=== PATIENT | female | born 1970 | race Caucasian/White ===

== ENCOUNTER 2018-10-05 06:01 | Day surgery (SDC) | payer OTHER ==
[~2018-10-05 06:01] MED LIST: CEFAZOLIN 1 GM/50 ML (PMX) 50 ML IVPB
[2018-10-05 06:48] LABS: ADD MAN DIFF? NO
[2018-10-05 06:56] LABS: BASOPHIL # 0.1 10^3/ul (0.0-0.1); BASOPHILS % 0.8 % (0.0-2.0); EOSINOPHILS # 0.1 10^3/ul (0.0-0.5); EOSINOPHILS % 1.5 % (0.0-7.0); HEMATOCRIT 37.9 % (37.0-47.0); HEMOGLOBIN 12.5 g/dl (12.0-16.0); LYMPHOCYTES # 2.2 10^3/ul (0.8-2.9); LYMPHOCYTES % 29.4 % (15.0-51.0); MEAN CORPUSCULAR HEMOGLOBIN 30.1 pg (29.0-33.0); MEAN CORPUSCULAR VOLUME 91.3 fl (82.0-101.0); MEAN PLATELET VOLUME 11.5 fl (7.4-10.4); MONOCYTE # 0.6 10^3/ul (0.3-0.9); MONOCYTES % 7.5 % (0.0-11.0); NEUTROPHIL # 4.6 10^3/ul (1.6-7.5); NEUTROPHILS % 60.7 % (39.0-77.0); PLATELET COUNT 214 10^3/UL (140-415); RED BLOOD COUNT 4.15 10^6/ul (4.20-5.40); RED CELL DISTRIBUTION WIDTH 12.8 % (11.5-14.5)
[2018-10-05 06:56] LABS: WHITE BLOOD COUNT 7.6 10^3/ul (4.8-10.8)
[2018-10-05 07:27] LABS: ALANINE AMINOTRANSFERASE 28 IU/L (13-69); ALBUMIN 3.8 g/dl (3.3-4.9); ALBUMIN/GLOBULIN RATIO 1.31; ALKALINE PHOSPHATASE 75 IU/L (42-121); ANION GAP 6 (5-13); ASPARTATE AMINO TRANSFERASE 25 IU/L (15-46); BILIRUBIN,INDIRECT 0.2 mg/dl (0-1.1); BILIRUBIN,TOTAL 0.2 mg/dl (0.2-1.3); BLOOD UREA NITROGEN 8 mg/dl (7-20); CALCIUM 8.5 mg/dl (8.4-10.2); CARBON DIOXIDE 26 mmol/L (21-31); CHLORIDE 104 mmol/L (97-110); CREATININE 0.65 mg/dl (0.44-1.00); Estimated GFR > 60 mL/min (>60); GLUCOSE 88 mg/dl (70-220); SODIUM 136 mmol/L (135-144); TOTAL PROTEIN 6.7 g/dl (6.1-8.1)
[2018-10-05 07:29] LABS: INR 0.91; PROTIME 12.4 Sec (11.9-14.9)
[2018-10-05 07:30] LABS: PARTIAL THROMBOPLASTIN TIME 26.9 Sec (23.0-35.0)
[2018-10-05] MEDS ORDERED: LIDOCAINE 2% (MDV) 20 ML INJ (07:30)
[2018-10-05] MEDS ORDERED: PROPOFOL 20 ML (07:46)
[2018-10-05] MEDS ORDERED: CEFAZOLIN 1 GM INJ (07:46)
[2018-10-05] MEDS ORDERED: MIDAZOLAM 1 MG/ML 2 ML INJ (07:47)
[2018-10-05] MEDS ORDERED: FENTAnyl 50 MCG/ML VIAL ×2 (07:47→08:14)
[2018-10-05] MEDS ORDERED: KETOROLAC 30 MG INJ (07:56)
[2018-10-05] MEDS ORDERED: DEXAMETHASONE 4 MG/ML 5 ML INJ (07:56)
[2018-10-05] MEDS ORDERED: ONDANSETRON 4 MG INJ (07:56)
[2018-10-05] MEDS ORDERED: METOCLOPRAMIDE 10 MG INJ (07:56)
[2018-10-05] MEDS ORDERED: LABETALOL HCL 20MG INJ IV (08:00)
[2018-10-05] MEDS ORDERED: ALBUTEROL 0.083% (NEB) 2.5 MG/3 ML AMP HHN (08:00)
[2018-10-05] MEDS ORDERED: MEPERIDINE 25 MG INJ IV (08:00)
[2018-10-05] MEDS ORDERED: METOCLOPRAMIDE 10 MG INJ IV (08:00)
[2018-10-05] MEDS ORDERED: HYDROmorphONE 1 MG/5 ML IV SYRINGE IV ×3 (08:00)
[2018-10-05] MEDS ORDERED: DIPHENHYDRAMINE 50 MG INJ IV (08:00)
[2018-10-05] MEDS ORDERED: OXYCODONE/ACETAMINOPHEN (5/325) TAB PO (08:00)
[2018-10-05] MEDS ORDERED: hydrALAzine 20 MG INJ IV (08:00)
[2018-10-05] MEDS ORDERED: EPHEDrine SULFATE 50 MG/5 ML SYG IV (08:00)
[2018-10-05] MEDS ORDERED: FENTAnyl 50 MCG/ML VIAL IV ×3 (08:00)
[2018-10-05] MEDS ORDERED: ONDANSETRON 4 MG INJ IV (08:00)
[2018-10-05] MEDS: BUPIVACAINE 0.5% (SDV) 30 ML INJ (08:08)
[2018-10-05] MEDS: LIDOCAINE 1% (MPF) 30 ML INJ INJ (08:09)
[2018-10-05] MEDS: DEXAMETHASONE 4 MG/ML 1 ML INJ (08:10)
[2018-10-05] MEDS ORDERED: EPHEDrine SULFATE 50 MG/5 ML SYG (08:35)
[2018-10-05] MEDS ORDERED: LIDOCAINE 1% (MPF) 30 ML INJ (08:56)
== END 2018-10-05 10:43 | disposition home or self-care (01) ==
LOC: SDS 06:01
DX: M21.612 Bunion of left foot (principal); I10 Essential (primary) hypertension; J45.909 Unspecified asthma, uncomplicated; E66.9 Obesity, unspecified; Z68.32 Body mass index [BMI] 32.0-32.9, adult
CPT/HCPCS: 28296; 73620; 80053; 85025; 85610; 85730; 88304; 88311

== ENCOUNTER 2019-03-22 06:11 | Day surgery (SDC) | payer OTHER ==
[2019-03-22] MEDS ORDERED: DEXAMETHASONE 4 MG/ML 1 ML INJ (07:12)
[2019-03-22] MEDS: BUPIVACAINE 0.5% (SDV) 30 ML INJ (07:38)
[2019-03-22] MEDS ORDERED: MIDAZOLAM 1 MG/ML 2 ML INJ (07:51)
[2019-03-22] MEDS ORDERED: FENTAnyl 50 MCG/ML VIAL ×2 (07:51→08:09)
[2019-03-22] MEDS: LIDOCAINE 1% (MPF) 30 ML INJ (08:15)
[2019-03-22] MEDS ORDERED: CEFAZOLIN 1 GM INJ (08:26)
[2019-03-22] MEDS ORDERED: PROPOFOL 20 ML (08:26)
[2019-03-22] MEDS ORDERED: LIDOCAINE 2% (SDV) 5 ML INJ (08:26)
[2019-03-22] MEDS ORDERED: ONDANSETRON 4 MG INJ (08:27)
[2019-03-22] MEDS ORDERED: DIPHENHYDRAMINE 50 MG INJ IV (09:00)
[2019-03-22] MEDS ORDERED: ONDANSETRON 4 MG INJ IV (09:00)
[2019-03-22] MEDS ORDERED: ALBUTEROL 0.083% (NEB) 2.5 MG/3 ML AMP HHN (09:00)
[2019-03-22] MEDS ORDERED: LABETALOL HCL 20MG INJ IV (09:00)
[2019-03-22] MEDS ORDERED: MEPERIDINE 25 MG INJ IV (09:00)
[2019-03-22] MEDS ORDERED: FENTAnyl 50 MCG/ML VIAL IV (09:00)
[2019-03-22] MEDS ORDERED: HYDROmorphONE 1 MG/5 ML IV SYRINGE IV ×2 (09:00)
[2019-03-22] MEDS ORDERED: hydrALAzine 20 MG INJ IV (09:00)
[2019-03-22] MEDS ORDERED: METOCLOPRAMIDE 10 MG INJ IV (09:00)
[2019-03-22] MEDS ORDERED: KETOROLAC 30 MG INJ IV (09:00)
== END 2019-03-22 10:35 | disposition home or self-care (01) ==
LOC: SDS 06:11
DX: M21.611 Bunion of right foot (principal); I10 Essential (primary) hypertension; J45.909 Unspecified asthma, uncomplicated; E78.5 Hyperlipidemia, unspecified; E66.01 Morbid (severe) obesity due to excess calories; Z68.33 Body mass index [BMI] 33.0-33.9, adult
CPT/HCPCS: 28292; 88304; 88311